=== PATIENT | female | born 1945 | race Caucasian/White ===

== ENCOUNTER → 2017-03-17 | Outpatient (CLI) | payer MEDICARE, OTHER ==
[~2017-03-17] MED LIST: ALEN70 PO; GUAI100S6 PO; HYZA100T2 PO; NAPR220C22 PO; PRED20 PO; SIMV10TA PO; TYLE325T PO; ZITH250T PO
[2017-03-17 12:18] LABS: AUTOMATED NEUTROPHIL # 3.7 TH/MM3 (1.8-7.7); BASOPHIL # 0.1 TH/MM3 (0-0.2); BASOPHIL % 0.9 % (0.0-2.0); EOSINOPHIL # 0.1 TH/MM3 (0-0.4); EOSINOPHIL % 1.7 % (0.0-4.0); HEMATOCRIT 42.8 % (35.0-46.0); HEMO FLAGS DIFF FINAL; LYMPHOCYTE # 2.2 TH/MM3 (1.0-4.8); MEAN CELL VOLUME 87.3 FL (80.0-100.0); MEAN CORPUSCULAR HEMOGLOBIN 29.2 PG (27.0-34.0); MEAN CORPUSCULAR HGB CONC 33.4 % (32.0-36.0); MONO % 6.9 % (0.0-8.0); NEUT % 57.5 % (16.0-70.0); PLATELET COUNT 193 TH/MM3 (150-450); RED BLOOD COUNT 4.91 MIL/MM3 (4.00-5.30); RED CELL DISTRIBUTION WIDTH 12.1 % (11.6-17.2); WHITE BLOOD COUNT 6.6 TH/MM3 (4.0-11.0)
--- NOTE | 2017-03-17 15:58 | EKG ---
Date Performed: 03/17/2017 Time Performed: 12:00:30 PTAGE: 72 years EKG: Sinus rhythm POSSIBLE LEFT ATRIAL ENLARGEMENT POSSIBLE RIGHT VENTRICULAR CONDUCTION DELAY NONSPECIFIC T-WAVE ABNO RMALITY BORDERLINE ECG PREVIOUS TRACING : 12/29/1998 09.39 Compared to prior tracing no significant change DOCTOR: Kg Dumont Interpretating Date/Time 03/17/2017 15:57:49
== END ==
LOC: PHPRE 11:19
PROVIDERS: ATTEND Ophthalmology
DX: Z01.810 Encounter for preprocedural cardiovascular examination (principal); Z01.812 Encounter for preprocedural laboratory examination; I10 Essential (primary) hypertension; R94.31 Abnormal electrocardiogram [ECG] [EKG]
CPT/HCPCS: 36415; 85025; 93005

== ENCOUNTER → 2017-04-07 | Day surgery (SDC) | payer MEDICARE, OTHER ==
--- NOTE | 2017-03-27 08:49 | MH ---
cc: DOUGLAS BRISCOE DATE OF ADMISSION: 04/07/2017 ADMISSION DIAGNOSIS Cataract right eye. HISTORY OF PRESENT ILLNESS This 72-year-old white female is coming through [facility] for the purpose of a lens extraction of the right eye with intraocular lens implant under local anesthesia. She has noticed decreasing visual acuity interfering with her daily activities and has elected to have the above procedure. Her best corrected visual acuity is 20/50 in the right eye and 20/30 -2 in the left eye in room light. PAST MEDICAL HISTORY 1. The patient has a history of a history of hypertension. 2. Arthritis. 3. Coronary artery disease. PAST SURGICAL HISTORY 1. Surgical history includes fibroids cysts in her left foot. 2. Hand surgery. 3. Triple bypass surgery. DAILY MEDICATION LIST Tylenol or Aleve p.r.n. ALLERGIES SHE IS ALLERGIC TO PENICILLIN. SOCIAL HISTORY She did smoke in the past 1-1/2 packs per day of cigarettes for 40 years and drinks alcohol socially. FAMILY HISTORY Positive for mother and grandmother with cataracts. REVIEW OF SYSTEMS HEAD: Patient denies severe headaches, dizziness or recent head injury. EARS: Patient denies hearing loss, ear pain, discharge or ringing in the ears. NOSE: Patient denies nasal discharge, obstruction or frequent colds. MOUTH AND THROAT: Patient denies soreness of the mouth or tongue, bleeding gums, trouble swallowing, changes in voice or sore throat. NECK: Patient denies neck pain or swelling, limitation of neck movement or neck injury. CARDIOPULMONARY SYSTEM: Patient denies shortness of breath, orthopnea, chronic cough, sputum production, hemoptysis, chest pain, wheezing, palpitations or light-headedness. GI SYSTEM: Patient denies poor appetite, nausea, vomiting, abdominal pain, ulcers, hemorrhoids or change in bowel habits. SYSTEM: The patient denies urinary frequency, dysuria, change in urine color. NERVOUS SYSTEM: Patient denies convulsions, vertigo, stroke, numbness or weakness. PHYSICAL EXAMINATION: VITAL SIGNS: Blood pressure 158/100, pulse 64, respirations 20. HEAD: Normocephalic, atraumatic. NOSE: Without rhinorrhea. THROAT: Clear. NECK: Supple. CHEST: Clear. HEART: Regular rhythm. ABDOMEN: Without tenderness. EXTREMITIES: Without edema. NEUROLOGIC: Within normal limits. MENTAL STATUS: Within normal limits. EYE EXAM The patient's best corrected visual acuity in room light is 20/50 in the right eye and 20/30 -2 in the left eye. Visual choe are full to confrontation testing. Extraocular muscle exam reveals full versions with orthophoria in the distance and exophoria at near. Pupils are 2 mm, equal, round, reactive to light without afferent defect. Anterior segment examination reveals nuclear sclerotic and cortical cataract changes greater in the right eye than the left. Intraocular pressure is 19 in the right eye and 18 in the left by applanation tonometry. Dilated fundus exam revealed sharp disks with cup-to-disk ratio of 0.35 in the right eye and 0.4 in the left. The macula is clear bilaterally. There is a normal background in the right eye and a faint choroidal nevus temporal to the macula in the left eye which is very small in size. IMPRESSION 1. Bilateral cataracts, right greater than left. 2. Small choroidal nevus, left eye. PLAN The plan is lens extraction of the right eye with intraocular lens implant under local anesthesia through [facility]. Iris retractors will probably be used in this case as the pupil does not dilate well. The patient has been cleared medically. She has been counseled as to the risks, benefits and alternatives and elected to proceed. I feel that cataract surgery will improve the quality of life and activity of daily living in this patient. MD LUIS ANGEL Macdonald/DIANA /8:23 AM /8:31 AM
[~2017-04-07] VITALS: Ht 165.1 cm; Wt 70.5 kg
[~2017-04-07] MED LIST changes: +ACETYLCHOLINE CHL OPHT SOLN 1:100 2 ML VIAL ONE; -ALEN70 PO; +CHLORHEXIDINE GLUCONATE 2 % 1 PACK (2 CLOTHS) TOPICAL PRN; +EPINEPHrine HCL (1:1000) 1 MG/ML VIAL ONE; -GUAI100S6 PO; +HYALURONIDASE/LIDOCAINE/BUPIVACAINE 5 ML SYR RIGHT EYE ONE; -HYZA100T2 PO; +INSULIN HUMAN REGULAR 1,000 UNITS/10 ML VIAL SQ PRN; +LACTATED RINGER'S 1000 ML IV PRN; +METOPROLOL TARTRATE 25 MG TAB PO PRN; +PILOCARPINE HCL 2% OPHT SOLN 15 ML BTL ONE; +POVIDONE IODINE 5% (ANTISEPSIS KIT) 4 APPLICATIONS EACH NARE PRN; -PRED20 PO; +PROPARACAINE HCL 0.5% OPHT SOLN 15 ML BTL RIGHT EYE ONE; +PROPOFOL 200 MG/20 ML AMP ONE; -SIMV10TA PO; +SODIUM CHLORID 0.9% 500 ML IV PRN; +TOBRAMYCIN/DEXAMETHASONE OPTH OINT 3.5 GM TUBE ONE; +VISCOAT OPHT IRRIG SOLN 0.75 ML SYRINGE ONE; -ZITH250T PO
[2017-04-07 09:52] VITALS: PULSE 62
[2017-04-07] MEDS: DICLOFENAC SOD 0.1% OPHT SOLN 2.5 ML BTL RIGHT EYE SCH ×4 (09:54→10:03)
[2017-04-07] MEDS: PHENYLEPHRINE HCL 2.5% OPTH SOLN 2 ML BTL RIGHT EYE SCH ×4 (09:54→10:03)
[2017-04-07] MEDS: TROPICAMIDE 1% OPHT SOLN 15 ML BTL RIGHT EYE SCH ×4 (09:54→10:03)
[2017-04-07] MEDS: GATIFLOXACIN 0.5% OPHT SOLN 2.5 ML BTL RIGHT EYE SCH ×4 (09:54→10:03)
[2017-04-07] MEDS: CYCLOPENTOLATE HCL 1% OPHT SOLN 2 ML BTL RIGHT EYE SCH ×4 (09:54→10:03)
[2017-04-07 11:23] VITALS: PULSE 72
[2017-04-07 12:55] VITALS: TEMP 98
[2017-04-07 13:25] VITALS: BP 161/93; PULSE 61; RESP 14; O2SAT 98
--- NOTE | 2017-04-07 13:42 | MP ---
cc: DOUGLAS MELGOZA DATE OF SURGERY: 04/07/2017 PREOPERATIVE DIAGNOSIS Cataract, right eye. POSTOPERATIVE DIAGNOSIS Cataract, right eye. OPERATION Extracapsular cataract extraction with posterior chamber intraocular lens implant by phacoemulsification, right eye. SURGEON Douglas Melgoza M.D. ANESTHESIA Local. COMPLICATIONS None. INDICATIONS See history and physical previously dictated. OPERATIVE PROCEDURE The patient had adequate retrobulbar and eyelid blocks administered in the holding area and was brought to the operating room. The right eye was prepped and draped in the usual sterile ophthalmic manner. A lid speculum was inserted in the right eye. A 4-0 silk bridle suture was placed through the conjunctiva near the superior rectus muscle and it was tagged to the drape. A fornix-based conjunctival flap was prepared spanning approximately 5 mm in width. Hemostasis was obtained with wet-field cautery. A 3.5 mm groove was made 1 mm from the limbus and dissected up to the limbus in the form of a scleral pocket incision. A stab incision was then made at the 2 o'clock position. Viscoelastic was injected into the anterior chamber. In order to maintain an adequately dilated pupil, it was elected to use iris retractors in this case. Stab incisions were made at the 1 o'clock, 3 o'clock, 5 o'clock, 8 o'clock and 10 o'clock positions. Iris retractors were then inserted through the stab incisions in the peripheral cornea and positioned to enlarge the size of the pupil. The anterior chamber was entered with a 2.75 mm keratome through the scleral pocket incision. A 360 degree continuous curvilinear capsulorrhexis was then performed. Hydrodissection was utilized to divide the nucleus into inner and outer components and to separate the cortex from the capsule. Phacoemulsification was then utilized to remove the nucleus. The outer nuclear layer was removed with irrigation and aspiration and short bursts of ultrasound as necessary. The cortex was removed with the irrigation-aspiration handpiece. The posterior capsule was polished with the capsule polisher. Viscoelastic was injected into the capsular bag. The intraocular lens was inspected and found to be in good condition. The lens utilized was an Sina, model SA60AT with a power of +21.5 diopters. The lens was inserted into the capsular bag. The five iris retractors were removed. The viscoelastic in the anterior chamber was then removed with the irrigation-aspiration hand piece. Viscoelastic was also removed from beneath the intraocular lens. The anterior chamber was filled with Miochol-E through the stab incision and pressurized. The wound was checked for leaks at this pressure and normalized pressure and there were none. The 4-0 bridle suture was removed. The conjunctival flap was brought down over the wound and secured with cautery. Pilocarpine 2% eye drops were instilled topically. The lid speculum was removed. TobraDex ophthalmic ointment was applied. The eye was double patched and shielded. The patient tolerated the procedure well and left the Operating Room in satisfactory condition. MD LUIS ANGEL Macdonald/CEM /12:54 PM /1:37 PM
== END | disposition home or self-care (01) ==
LOC: PHSDC 08:45
PROVIDERS: ATTEND Ophthalmology
DX: H26.9 Unspecified cataract (principal)
CPT/HCPCS: 00142; 66984; J0171; J7040; V2632

== ENCOUNTER → 2017-07-07 | Day surgery (SDC) | payer MEDICARE, OTHER ==
--- NOTE | 2017-07-04 16:00 | MH ---
cc: DOUGLAS BRISCOE DATE OF ADMISSION: 07/07/2017 ADMISSION DIAGNOSIS Cataract left eye. HISTORY OF PRESENT ILLNESS This 80-year-old white female is coming through [facility] for the purpose of a lens extraction of the left eye with intraocular lens implant. She had a similar procedure in the right eye in March 2017 and did well postoperatively and now is requesting cataract surgery for the left eye. Her best corrected visual acuity is 20/20 in the right eye and it is 20/40 in the left eye in room light. PAST MEDICAL HISTORY The patient has a history of hypertension, arthritis and coronary artery disease. PAST SURGICAL HISTORY: surgical history includes fibroids cysts in the left foot hand surgery triple bypass surgery as well as the cataract surgery on her right eye in March of last year. DAILY MEDICATIONS Tylenol or Aleve as necessary. ALLERGIES PENICILLIN SOCIAL HISTORY She is a one and a half pack per day smoker for 40 years in the past but does not smoke now. She drinks alcohol socially. FAMILY HISTORY: Family history is positive for mother and grandmother with cataract. REVIEW OF SYSTEMS: HEAD: Patient denies severe headaches, dizziness or recent head injury. EARS: Patient denies hearing loss, ear pain, discharge or ringing in the ears. NOSE: Patient denies nasal discharge, obstruction or frequent colds. MOUTH AND THROAT: Patient denies soreness of the mouth or tongue, bleeding gums, trouble swallowing, changes in voice or sore throat. NECK: Patient denies neck pain or swelling, limitation of neck movement or neck injury. CARDIOPULMONARY SYSTEM: Patient denies shortness of breath, orthopnea, chronic cough, sputum production, hemoptysis, chest pain, wheezing, palpitations or light-headedness. GI SYSTEM: Patient denies poor appetite, nausea, vomiting, abdominal pain, ulcers, hemorrhoids or change in bowel habits. SYSTEM: The patient denies urinary frequency, dysuria, change in urine color. NERVOUS SYSTEM: Patient denies convulsions, vertigo, stroke, numbness or weakness. PHYSICAL EXAMINATION VITAL SIGNS: Blood pressure 118/76, pulse 62, respirations 20. HEAD, EYES, EARS, NOSE, AND THROAT: Head: Normocephalic, atraumatic. Nose: Without rhinorrhea. Throat clear. NECK: Supple. CHEST: Clear. HEART: Regular rhythm. ABDOMEN: Without tenderness. EXTREMITIES: Without edema. NEUROLOGIC: Within normal limits. PSYCHIATRIC: Mental status within normal limits. EYE EXAMINATION The patient's best corrected visual acuity is 20/20 in the right eye and 20/40 in the left eye in room light. Visual choe are full to confrontation testing. Extraocular muscle exam reveals full versions with orthophoria at distance and exophoria at near. Pupils are 2 mm equal, round, reactive to light without afferent defect. Anterior segment examination reveals a posterior chamber intraocular lens in place in the right eye and nuclear sclerotic and cortical cataract changes in the left. Intraocular pressure is 17 in each eye by applanation tonometry. Dilated fundus exam reveals sharp disks with cup-to-disk ratio 0.35 in the right eye and 0.4 in the left. The macula is clear. The background is within normal limits, in the right eye with a faint nevus temporal to the macula in the left eye which is very small in size. IMPRESSION 1. Cataract left eye. 2. Pseudophakia right eye. 3. Small choroidal nevus, left eye. PLAN: The plan is lens extraction of the left eye with intraocular lens implant under local anesthesia through [facility]. The patient has been cleared medically. She has been counseled as to the risks, benefits and alternatives elected to proceed. I feel that cataract surgery will improve the quality of life and activities of daily living in this patient. MD LUIS ANGEL Macdonald/kolby /2:32 PM /3:39 PM
[~2017-07-07] VITALS: Ht 165.1 cm; Wt 70.5 kg
[~2017-07-07] MED LIST changes: -EPINEPHrine HCL (1:1000) 1 MG/ML VIAL ONE; +EPINEPHrine HCL PF/SF (1:1000) 1 MG/ML AMP I-OCULAR ONE; +HYALURONIDASE/LIDOCAINE/BUPIVACAINE 5 ML SYR LEFT EYE ONE; -HYALURONIDASE/LIDOCAINE/BUPIVACAINE 5 ML SYR RIGHT EYE ONE; -INSULIN HUMAN REGULAR 1,000 UNITS/10 ML VIAL SQ PRN; +PROPARACAINE HCL 0.5% OPHT SOLN 15 ML BTL LEFT EYE ONE; -PROPARACAINE HCL 0.5% OPHT SOLN 15 ML BTL RIGHT EYE ONE; +TETRACAINE 0.5% OPTH SOLN 4 ML BTL ONE; +acetaZOLAMIDE SEQUELS 500 MG SUSTAINED RELEASE CAP ONE
[2017-07-07] MEDS: TROPICAMIDE 1% OPHT SOLN 15 ML BTL LEFT EYE SCH ×4 (08:27→08:36)
[2017-07-07] MEDS: DICLOFENAC SOD 0.1% OPHT SOLN 2.5 ML BTL LEFT EYE SCH ×4 (08:27→08:36)
[2017-07-07] MEDS: PHENYLEPHRINE HCL 2.5% OPTH SOLN 2 ML BTL LEFT EYE SCH ×4 (08:27→08:36)
[2017-07-07] MEDS: CYCLOPENTOLATE HCL 1% OPHT SOLN 2 ML BTL LEFT EYE SCH ×4 (08:27→08:36)
[2017-07-07] MEDS: GATIFLOXACIN 0.5% OPHT SOLN 2.5 ML BTL LEFT EYE SCH ×4 (08:27→08:36)
[2017-07-07 08:33] VITALS: PULSE 67
[2017-07-07 09:11] VITALS: PULSE 77
[2017-07-07 11:11] VITALS: TEMP 97.9
[2017-07-07 11:40] VITALS: BP 156/93; PULSE 79; RESP 14; O2SAT 99
--- NOTE | 2017-07-08 09:35 | MP ---
cc: DOUGLAS MELGOZA DATE OF SURGERY 07/07/2017 PREOPERATIVE DIAGNOSIS Cataract left eye. POSTOPERATIVE DIAGNOSIS Cataract left eye. OPERATION Extracapsular cataract extraction with posterior chamber intraocular lens implant by phacoemulsification, left eye. SURGEON Douglas Melgoza M.D. ANESTHESIA Local COMPLICATIONS None INDICATIONS See history and physical previously dictated. OPERATIVE PROCEDURE The patient had adequate retrobulbar and eyelid blocks administered in the holding area and was brought to the operating room. The left eye was prepped and draped in the usual sterile ophthalmic manner. A lid speculum was inserted in the left eye. A 4-0 silk bridle suture was placed through the conjunctiva near the superior rectus muscle and it was tagged to the drape. A fornix-based conjunctival flap was prepared spanning approximately 5 mm in width. Hemostasis was obtained with wet-field cautery. A 3.5 mm groove was made 1 mm from the limbus and dissected up to the limbus in the form of a scleral pocket incision. A stab incision was then made at the 2 o'clock position. Viscoelastic was injected into the anterior chamber. In order to maintain an adequately dilated pupil, it was elected to use iris retractors in this case. Stab incisions were made at the 1 o'clock, 3 o'clock, 5 o'clock, 8 o'clock and 10 o'clock positions. Iris retractors were then inserted through the stab incisions in the peripheral cornea and positioned to enlarge the size of the pupil. The anterior chamber was entered with a 2.75 mm keratome through the scleral pocket incision. A 360 degree continuous curvilinear capsulorrhexis was then performed. Hydrodissection was utilized to divide the nucleus into inner and outer components and to separate the cortex from the capsule. Phacoemulsification was then utilized to remove the nucleus. The outer nuclear layer was removed with irrigation and aspiration and short bursts of ultrasound as necessary. The cortex was removed with the irrigation-aspiration handpiece. The posterior capsule was polished with the capsule polisher. Viscoelastic was injected into the capsular bag. The intraocular lens was inspected and found to be in good condition. The lens utilized was a Sina, model SA60AT with a power of +21.5 diopters. The lens was inserted into the capsular bag. The five iris retractors were removed. The viscoelastic in the anterior chamber was then removed with the irrigation-aspiration hand piece. Viscoelastic was also removed from beneath the intraocular lens. The anterior chamber was filled with Miochol-E through the stab incision and pressurized. The wound was checked for leaks at this pressure and normalized pressure and there were none. The 4-0 bridle suture was removed. The conjunctival flap was brought down over the wound and secured with cautery. Pilocarpine 2% eye drops were instilled topically. The lid speculum was removed. TobraDex ophthalmic ointment was applied. The eye was double patched and shielded. The patient tolerated the procedure well and left the Operating Room in satisfactory condition. MD LUIS ANGEL Macdonald/RHONA /11:12 AM /9:30 AM
== END | disposition home or self-care (01) ==
LOC: PHSDC 07:59
PROVIDERS: ATTEND Ophthalmology
DX: H25.812 Combined forms of age-related cataract, left eye (principal); H57.8 Other specified disorders of eye and adnexa; D31.32 Benign neoplasm of left choroid; Z96.1 Presence of intraocular lens; I25.10 Atherosclerotic heart disease of native coronary artery without angina pectoris; I10 Essential (primary) hypertension; M19.90 Unspecified osteoarthritis, unspecified site; Z87.891 Personal history of nicotine dependence
CPT/HCPCS: 00142; 66982; J0171; J7040; V2632